=== PATIENT | female | born 1995 | race Caucasian/White ===

== ENCOUNTER 2016-02-13 00:58 | Inpatient (IN) | payer OTHER ==
[~2016-02-13] VITALS: Ht 154.9 cm; Wt 63.5 kg
[2016-02-13 01:56] LABS: Mean Corpuscular Hemoglobin 30.2 pg (27.0-35.0); Mean Corpuscular Volume 87.4 fL (81-100)
[2016-02-13] MEDS ORDERED: Lactated Ringer's 1,000 ML IV ONE (02:10)
[2016-02-13] MEDS ORDERED: Sodium Citrate-Citric Acid 15 mL Solution ONE (03:31)
[2016-02-13] MEDS ORDERED: CeFAZolin 2 Gm/50 mL D5W Duplex Bag IV ONE (03:32)
[2016-02-13] MEDS ORDERED: Morphine PF 1 mg/mL 10 mL Inj ONE (03:37)
[2016-02-13] MEDS ORDERED: Lactated Ringer's 1,000 ML IV PRN (03:53)
--- NOTE | 2016-02-13 03:53 | PCM.HPANE ---
Patient Data Surgeon Admitting Provider:Lei Paulson MD Attending Provider:Neda Louie MD Primary Care Physician:Lei Paulson MD Other Provider:Azalia Kidd Anesthesia Reason for Visit Active Labor ACTIVE LABOR Ht/WT & BMI Body Mass Index Allergies Coded Allergies: No Known Allergies (Unverified , 02/13/16) Medications Hypertension Medication: No Home Meds Incl Beta Sandeep: No History Hx of Heart Problems?: No Hx of Respiratory Problem?: No Hx Neurologic Problems?: No Hx of GI Problems?: Yes Gastrointestinal History: Positive for:: Heartburn Female Hx: Positive for:: Currently Hx Surgeries?: No Hx Substance Use: Yes Smoking Status: Current Every Day Smoker Light Tobacco Smoker Stop/Bang Treated for Sleep Apnea?: No Do You Have a CPAP Machine?: No JAJA Risk Assessment: Low Risk, <3 Yes Risk Assessment Category Category 1A: Patient has history of documented sleep apnea, and HAS NOT received any narcotic, sedative or anesthesia administration during this stay. Category 1B: Patient has history of documented sleep apnea, and HAS received any narcotic , sedative or anesthesia administration during this stay Category 2: Patient has SUSPECTED Obstructive Sleep Apnea, and HAS received any narcotic , sedative or anesthesia administration during this stay. Category 3: Patient has SUSPECTED Obstructive Sleep Apnea and HAS NOT received narcotic, sedative or anesthesia administration during this stay. Category 4: Outpatient in Procedural Areas with known sleep apnea or who screen positive for High Risk via the STOP/BANG questionnaire. Exam Exam General Appearance: Oriented X3 HEENT/AIRWAY: MP 2 Lungs: Normal Air Movement Heart: Regular Rate/Rhythm Meds/Labs/Diagnostics Admission Meds Current Medications Lactated Ringer's (Lr) 1,000 ml @ 0 mls/hr Q0M ONCE IV Last administered on 02:15; Start 02/13/16 at 02:10; Stop 02/13/16 at 02:11; Status DC Citric Acid/ Sodium Citrate (Bicitra) 30 ml STK-MED ONCE .ROUTE Last administered on 02/13/16 03:42; Start 02/13/16 at 03:31; Stop 02/13/16 at 03:32; Status DC Labs Test 02/13/16 01:35 White Blood Count 11.0th/mm3 (3.8-10.1) Red Blood Count 3.58mil/mm3 (3.90-5.20) Hemoglobin 10.8g/dL (12.0-15.6) Hematocrit 31.3% (35.0-46.0) Mean Corpuscular Volume 87.4fL (81-100) Mean Corpuscular Hemoglobin 30.2pg (27.0-35.0) Mean Corpuscular Hemoglobin Concent 34.5% (32.0-37.0) Red Cell Distribution Width 12.7% (12.3-15.4) Platelet Count 212bil/L (150-400) Plan Impression Patient chart reviewed, patient interviewed and anesthestic plan with risks, benefits, and alternatives discussed, and informed consent obtained. ASA Physical Status: ASA3 Severe Disease Anesthetic Plan: SAB Bene/Risks/Altern/Consents: Yes HP Complete Prior to Induction: Yes Bulmaro Navarro MD Feb 13, 2016 03:53
[2016-02-13] MEDS ORDERED: MetoCLOpramide 5 mg/mL 2 mL Inj IVPUSH PRN (03:55)
[2016-02-13] MEDS ORDERED: Phenylephrine/NS-PF 100 mCg/mL 5 mL Syringe IVPUSH PRN (03:55)
[2016-02-13] MEDS ORDERED: Dexamethasone 4 mg/mL Inj IVPUSH PRN (03:55)
[2016-02-13] MEDS ORDERED: EPHEDrine Sulfate 50 mg/mL Inj IVPUSH PRN (03:55)
[2016-02-13] MEDS ORDERED: Atropine 0.4 mg/mL Inj IV PRN (03:55)
[2016-02-13] MEDS ORDERED: HYDROmorphone 1 mg/mL Inj IVPUSH PRN (03:55)
[2016-02-13] MEDS ORDERED: Ondansetron 2 mg/mL 2 mL Inj IVPUSH PRN (03:55)
[2016-02-13] MEDS ORDERED: fentaNYL-PF 50 mCg/mL 2 mL Inj IVPUSH PRN (03:55)
[2016-02-13] MEDS ORDERED: Morphine PF 1 mg/mL 10 mL Inj EPIDURAL ONE (03:55)
--- NOTE | 2016-02-13 04:39 | PCM.ANEP2 ---
Post Anesthesia Evaluation ASA/CMS Post Anesthesia VS in Patient's Normal Range?: Yes Resp Stable; Airway Patent?: Yes CV Function & Hydration Stable: Yes Mental Status Recovered?: Yes Pain control Satisfactory?: Yes N/V Control Satisfactory?: Yes Bulmaro Navarro MD Feb 13, 2016 04:39
--- NOTE | 2016-02-13 04:39 | PCM.ANEP1 ---
Post Anesthesia Phase 1 PACU Phase 1 Assessment Anesthetic Administered: SAB Level of Alertness: Awake, talking DEE's with Equal Strength: No Pain: No Oxygen Delivery: Room Air Lungs: Normal Air Movement Bulmaro Navarro MD Feb 13, 2016 04:39
[2016-02-13] MEDS: Lactated Ringer's 1,000 ML IV SCH ×3 (04:44→20:44)
[2016-02-13] MEDS ORDERED: LANOlin HPA 7 Gm Ointment TOPICAL PRN (04:45)
[2016-02-13] MEDS ORDERED: Oxytocin 30 Units/500 mL LR 30 UNITS in IV Premix 1 EACH IV PRN (04:45)
[2016-02-13] MEDS ORDERED: Carboprost 250 mCg/mL Inj IM PRN (04:45)
[2016-02-13] MEDS ORDERED: Hemorrhage Kit, Post Partum XX ONE (04:45)
[2016-02-13] MEDS ORDERED: Oxytocin 10 Unit/mL Inj IM PRN (04:45)
[2016-02-13] MEDS ORDERED: Methylergonovine 0.2 mg/mL Inj IM PRN (04:45)
[2016-02-13] MEDS ORDERED: Sodium Chloride LOK Flush 10 mL Syringe IVFLUSH PRN (04:45)
--- NOTE | 2016-02-13 05:14 | HP ---
[address] [address] HISTORY AND PHYSICAL PATIENT: DUYEN BLAKELY : 1995 MR#: [id number] ADMIT: 02/13/2016 JOB ID: [id number] HISTORY OF PRESENT ILLNESS: This is a 20-year-old female. She is 1 para 0, at 38 weeks. She presented to the [facility] because of leaking of fluid and contractions. At the [facility], she was examined and confirmed rupture of membranes, and it was noted she was 1 cm dilated, and it was a breech presentation. She was at [facility] about 3-4 days ago for planned external version for breech presentation, and that procedure failed. The patient was scheduled for a at 39 weeks. At triage, there was category 1 heart tracing. She is tamie every 3-4 minutes, with mild to moderate pain. This patient has being following up at [facility]. She started to follow up late at about 39 weeks, and during her care, it was noticed that her blood type was AB positive. Her rubella is immune. Varicella immune. RPR negative. HBsAg negative. HIV negative. Chlamydia and gonorrhea negative. Her GBS was negative, and she passed her diabetes screening test. She had an ultrasound that confirmed breech presentation at her last OB visit. She has no known drug allergies. She has no other medical problems or surgeries before, and this is her first . She is a chronic smoker, and she is also taking marijuana. Declined other drug usage. She declined drinking alcohol. PHYSICAL EXAMINATION: At admission, her vitals stable. She is afebrile. Her blood pressure in normal range. Her pulse in normal range. Cardiac: RRR, no murmur. Pulmonary: Bilaterally clear. Abdomen is soft, , uterus contracts every 3-4 minutes, relaxed completely during contractions. Extremities: Nontender. Cervix was 1 cm dilated, with breech presentation and confirmed rupture of membranes. ASSESSMENT AND PLAN: This is a 20-year-old female, 1 para 0, at 38 weeks. Premature rupture of membranes, in early labor. 1. The patient just ate some solid food before she came to triage. At this time, planning to give the patient one dose of terbutaline and IV fluid to see whether the contractions can spacing out or stop. If the patient is not in active labor, will wait for a period of time before we do the . 2. If labor continues to progress, we will have to do an emergency section, and then one dose of Pitocin was given at triage, and the contractions did not subside, and it was noted the patient continued to have contractions. Then, she was examined and noticed she is fully dilated. An emergency section was decided. 3. The patient can get Ancef 2 g for prophylaxis. 4. Group-B Strep negative status. 5. She will get SCD for procedure.
--- NOTE | 2016-02-13 05:32 | OP ---
[address] [address] OPERATIVE REPORT PATIENT: DUYEN BLAKELY : 1995 MR#: [id number] ADMIT: 02/13/2016 JOB ID: [id number] DATE OF SURGERY: 02/13/2016 SURGEON: Neda Louie MD 1ST HOMEWORKER: Kobi Pavon DO PREOPERATIVE DIAGNOSIS(ES): A 20-year-old female, 1, para 0, at 38 weeks breech presentation in active labor. 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 INDICATION OF THE PROCEDURE: A 20-year-old female, 1, para 0, at 38 weeks breech presentation in active labor. First assistent is necessary for this procedure for exposure and completing the procedure. Patient presented to [facility] for active labor, rupture of membranes and breech presentation at 38 weeks . Although ate just before she arrived at [facility] she is in active labor and could not be stopped and could not be delayed by terbutaline. Emergency section was decided. Discussed with patient the procedure, about the indication, benefits, and risks of primary section. Patient understood there is risk of infection, bleeding, injury to the organs around the uterus including the bladder, ureters, major verves and vessels, and bowels. Verbal consent was obtained before the procedure and written consent was obtained after the procedure. DETAILS OF PROCEDURE: Patient was transferred to operating room after spinal anesthesia was noted to be adequate. She was placed in dorsal supine position with a leftward tilt. She was prepared and draped in normal sterile fashion. A Pfannenstiel incision was placed with scalpel and this incision was carried through to the underlying fascia with Bovie. A transverse incision was placed on fascia with Bovie and extended bilaterally by Pulliam scissors. The superior aspect of the incision was grasped by straight Bia, tented up. The underlying rectus muscle was dissected off. The inferior aspect of the incision was grasped by a straight Bia, tented up. The underlying rectus muscle was dissected off. The rectus muscle was in the midline. The underlying peritoneum identified and entered both sharply and bluntly. Lower blade inserted to expose the lower segment of the uterus and the vesicouterine peritoneum identified and entered sharply with Pulliam scissors. Bladder flap created. Lower blade inserted. A transverse incision was placed on the lower segment uterus and extended by both bandage scissors and blunt separation. At this time, the membrane ruptured and all the instrument cleared from the field and this was noted to be complete breech presentation. The infant was delivered as a breech delivery mechanism without difficulty without complication. The delayed cord clamp was performed after 1 minute of delivery and then regular cord blood collected. So then the infant was handed to the waiting rubber engraver. Regular cord blood collected. Placenta delivered spontaneously completely and noticed to have 3-vessel cord. After the placenta delivered, the uterus was exteriorized. All debris and clots from field and at the same time Pitocin started by Anesthesia. 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 Then, the bilateral ovaries and tubes looked normal. The incision was closed by 0-Vicryl continuously with locked fashion. The 2nd layer of incision was placed for imbrication was placed with same suture. The hemostasis confirmed after the close of the incision. The pelvic cavity was irrigated by warm normal saline and the uterus returned back to the abdominal cavity. The incision was checked for a second time and hemostasis confirmed again then the fascia was reapproximated with 0-Vicryl continuously. The skin was closed by 4-0 Monocryl on a Arturo needle. The EBL during the procedure was 500 cc. IV fluid given was 1.2 L. Urine output was 200 cc with clear fluid. All instrument, needles, laps, and gauzes were counted and correct x2. This was a male infant. scores 9 and the weight was not available at dictation. [facility]
[2016-02-13] MEDS: Acetaminophen IV 1,000 MG in IV Premix 1 EACH IV PRN ×2 (06:17→11:46)
[2016-02-13] MEDS ORDERED: Oxytocin 10 Unit/mL Inj ONE (07:23)
[2016-02-13] MEDS ORDERED: Phenylephrine/NS 100 mCg/mL 10 mL Syringe IVPUSH ONE (07:23)
[2016-02-13] MEDS ORDERED: Dexamethasone 4 mg/mL Inj ONE (07:23)
[2016-02-13] MEDS ORDERED: Ondansetron 2 mg/mL 2 mL Inj ONE (07:23)
[2016-02-13] MEDS ORDERED: Propofol 10,000 mCg/mL 20 mL Inj ONE (07:23)
[2016-02-13] MEDS ORDERED: MetoCLOpramide 5 mg/mL 2 mL Inj ONE (07:23)
[2016-02-13] MEDS: HYDROcodone-APAP 5-325 mg Tablet PO PRN (19:26)
[2016-02-14] MEDS: HYDROcodone-APAP 5-325 mg Tablet PO PRN ×4 (00:12→16:03)
[2016-02-14 06:58] LABS: Mean Corpuscular Hemoglobin 29.9 pg (27.0-35.0); Mean Corpuscular Volume 90.5 fL (81-100)
--- NOTE | 2016-02-14 08:35 | PCM.PNOBPP ---
Subjective Date of Service Feb 14, 2016 Post : Primary Ceserean Delivery Subjective 20 yo female via Cesarian section due to breech presentation. Patient with 5/10 pain of muscles and incision site. She is requesting ability to go out and smoke a cigarette. Lochia: Normal Pain Management: PO pain meds Gastrointestinal: Good Appetite, Passing Flatus Postop Activity: Ambulate without Assist Group B Strep Results: Negative Blood Type: AB RH Type: Positive Labs Laboratory Tests 02/14/16 05:56: Exam Vital Signs Vital Signs: VS reviewed, stable Exam Abdomen: Abdomen soft, Abdomen appropriately tender : Voiding without difficulty Extremities: No edema General: Alert, No Acute Distress Surgical Wound : Incision General Appearence: Steri Strips, Wound under dressing Dressing & Drainage Status: Serosanguineous Drainage, No Odor OB Post Assessment/Plan Assessment 20 yo female cesarian section due to breech presentation. Problems: (1) Anemia Qualifiers: Anemia type: other cause Other causes of anemia: acute posthemorrhagic Qualified Code: D62 - Acute posthemorrhagic anemia Plan: Hemoglobin 8.5. Ferrous sulfate 3 times daily. Status: Acute ICD Code: D64.9 (2) Delivery by emergency section Plan: Patient meaning post surgical goals. Continue care. Status: Acute ICD Code: O82 (3) Tobacco abuse Plan: Nicotine patch, smoking cessation counseling. Status: Acute ICD Code: Z72.0 (4) Marijuana abuse Plan: Patient bottle feeding baby. Status: Acute ICD Code: F12.10 Pain Evaluation: Adequate Pain Control Post plan: Continue routine post care Attending Statement She is doing well on POD#1, pain is well controlled. She is ambulating and voiding well on her own since catheter was removed this AM. Incision is clean dry and intact. Pain is well controlled. Continue routine post operative care STEVE SU DO Feb 14, 2016 07:06 Fiorella Dunn MD Feb 15, 2016 11:38
--- NOTE | 2016-02-14 13:53 | NUR ---
Social Work-Family Assessment: Date/time: 02/14/16 1330 MOB and FOB and Baby: Ilana Salinas, Jeremy Villegas, and Toby Salinas Reason for SW consult: positive marijuana tox screen on MOB Current living situation:MOB and FOB are currently living together. MOB reports she, baby, and FOB will be staying with family friend at discharge due to larger home and friend to be able to assist with baby. Previous children/in whos care/CPS involvement: none Substance abuse hx:MOB report she uses marijuana regularly, but denies any other ETOH or substance. SW did explain to MOB and FOB that CPS information call will be made for positive marijuana tox screen. Mental Health hx and current issues: none noted. SW discussed post depression with MOB and FOB and provided with resources. Source of income/state assistance:MOB and FOB are currently both not working. They do receive TANF, WIC, and food stamps. DV/abuse hx: no DV concerns noted. MOB reports to feel safe where they are living. Supports:MOB and FOB report good friends and family support to be able to assist with baby and reach out to. Special healthcare needs/disabilities for baby: none noted. Involvement/Referral to [facility]/community programs: MOB already enrolled in [facility] and is aware or [facility]. SW provided her with resource packet with information in it. MOB and FOB report already having all supplies needed for baby. MOB already has aquatics manager picked out just needs to make an appointment. \ Other: SW spoke with RN who reports no concerns. RN reports MOB has been appropriate with baby and has been boding well. Assessment:SW did complete information call to CPS workers compensation paralegal Marcie Moffett for positive marijuana tox screen, cord stat pending. SW did inform MOB and FOB that this call would be made. No other concerns noted. MOB and FOB well connected with community resources and have good support system at home. Disposition/plan: Baby to discharge home with MOB and FOB when medically stable. CPS informational report has been made due to positive marijuana use. Resource packet has been provided to MOB and FOB. No other concerns noted at this time. RN has been updated. SW will continue if needs arise. JL Nicole Addendum: 02/14/16 at 1412 by DIANA BANKS Amended: Links added.
[2016-02-15] MEDS: oxyCODONE-Acetamin 5-325 mg Tablet PO PRN ×2 (00:04→09:02)
[2016-02-15] MEDS: HYDROcodone-APAP 5-325 mg Tablet PO PRN (04:05)
--- NOTE | 2016-02-15 06:39 | PCM.PNOBPP ---
Subjective Date of Service Feb 15, 2016 Post : Primary Ceserean Delivery Subjective 20 yo female via due to breech presentation and non reassuring heart tones. Patient with mild lower abdominal pain at the incision site, she describes as sore. Pt states no other complaints, she is having bowel movements, denies fever, chills N/V, TURNER, CP or SOB. Lochia: Normal Pain Management: PO pain meds Gastrointestinal: Good Appetite, Passing Flatus Postop Activity: Ambulate without Assist Group B Strep Results: Negative Blood Type: AB RH Type: Positive Labs Laboratory Tests 02/14/16 05:56: White Blood Count 11.9, Red Blood Count 2.84, Hemoglobin 8.5, Hematocrit 25.7, Mean Corpuscular Volume 90.5, Mean Corpuscular Hemoglobin 29.9, Mean Corpuscular Hemoglobin Concent 33.1, Red Cell Distribution Width 13.1, Platelet Count 165 Exam Exam Abdomen: Abdomen soft, Abdomen appropriately tender : Voiding without difficulty Extremities: Normal pulses Lungs: Clear to Auscultation Heart: Regular Rate/Rhythm General: Alert, Oriented X3, Cooperative, No Acute Distress OB Post Assessment/Plan Problems: (1) Anemia Qualifiers: Anemia type: other cause Other causes of anemia: acute posthemorrhagic Qualified Code: D62 - Acute posthemorrhagic anemia Plan: Hemoglobin 8.5 (02/14/2016). Ferrous sulfate 3 times daily. Status: Acute ICD Code: D64.9 (2) Delivery by emergency section Plan: Patient meaning post surgical goals. Continue care. Status: Acute ICD Code: O82 (3) Tobacco abuse Plan: Nicotine patch, smoking cessation counseling. Status: Acute ICD Code: Z72.0 (4) Marijuana abuse Plan: Patient bottle feeding baby. Status: Acute ICD Code: F12.10 Pain Evaluation: Adequate Pain Control Post plan: Continue routine post care Attending Statement The patient was seen and examined together with Dr. Melendez on 02/15/2016 and I have added additional information to the note above. LUNA MELENDEZ DO Feb 15, 2016 06:20 Ceci Gonzales MD Feb 16, 2016 08:16
--- NOTE | 2016-02-15 07:14 | PCM.DC.OB ---
Obstetrical Discharge Summary Date of Service Feb 15, 2016 Date of hospital admission Feb 13, 2016 at 01:10 Date of Discharge: Feb 15, 2016 Providers Admitting Physician: Lei Paulson MD Primary Care Physician: Lei Paulson MD Attending Physician: Neda Louie MD Problems: (1) Anemia Qualifiers: Anemia type: other cause Other causes of anemia: acute posthemorrhagic Qualified Code: D62 - Acute posthemorrhagic anemia Status: Acute ICD Code: D64.9 (2) Delivery by emergency section Status: Acute ICD Code: O82 (3) Tobacco abuse Status: Acute ICD Code: Z72.0 (4) Marijuana abuse Status: Acute ICD Code: F12.10 Date of Procedure: Feb 13, 2016 Pathology Emergency Brief History and Physical: H&P per Dr. Louie 02/13/2016 "This is a 20-year-old female. She is 1 para 0, at 38 weeks. She presented to the [facility] because of leaking of fluid and contractions. At the [facility], she was examined and confirmed rupture of membranes, and it was noted she was 1 cm dilated, and it was a breech presentation. She was at [facility] about 3-4 days ago for planned external version for breech presentation, and that procedure failed. The patient was scheduled for a at 39 weeks. At triage, there was category 1 heart tracing. She is tamie every 3-4 minutes, with mild to moderate pain. This patient has being following up at [facility]. She started to follow up late at about 39 weeks, and during her care, it was noticed that her blood type was AB positive. Her rubella is immune. Varicella immune. RPR negative. HBsAg negative. HIV negative. Chlamydia and gonorrhea negative. Her GBS was negative, and she passed her diabetes screening test. She had an ultrasound that confirmed breech presentation at her last OB visit. She has no known drug allergies. She has no other medical problems or surgeries before, and this is her first . She is a chronic smoker, and she is also taking marijuana. Declined other drug usage. She declined drinking alcohol." Hospital Course: Pt admitted for secondary to breech presentation. Pt tolerated Procedure well and had no postoperative complications. Docusate Sodium (Colace) 100 Mg Capsule 100 MG PO BID Prescribed by: LUNA MESA DO Ferrous Sulfate (Feosol) 325 Mg Tablet 325 MG PO TIDWM Prescribed by: LUNA MESA DO Ibuprofen (Ibuprofen) 600 Mg Tablet 600 MG PO Q6H PRN PRN For Pain Prescribed by: LUNA MESA DO oxyCODONE (oxyCODONE) 5 Mg Tablet 5-10 MG PO Q4H PRN PRN For Pain Prescribed by: LUNA MESA DO Discharge Medications: Percocet, Ibuprofen, Iron, Vit C, Colace Disposition Discharge to home in stable condition Follow-up plan Follow up in clinic in 2 weeks and 6 weeks. Discharge Diet: No restrictions Discharge Activity-General: Try not to overdue, Balance rest and activity, Activity as pain allows, Activity as energy allows, No lifting >15 pounds for 2 weeks Patient instructions Follow up in clininc in 2 weeks and then again in 6 weeks. Call the clinic if you experience any bleeding, fevers, chest pain, become lightheaded/dizzy, develop nausea/vomiting, or if your wound appears to be infected (becomes red, swollen, tender to palpation or if you have any fluid - blood or otherwise - begin to seep from your wound site please call the clinic or seek medical attention at the emergency department. Additional information Please take your percocet as directed, also do not also take tylenol with this medication. LUNA MESA DO Feb 15, 2016 06:49
--- NOTE | 2016-02-15 07:15 | PCM.DIMED ---
Discharge Instructions Date of Service Feb 15, 2016 Dates of Hospitalization Feb 13, 2016 at 01:10 Discharge Diagnosis Discharge Diagnosis Childbirth following emergency Diet No restrictions Activity Limited until seen by PCP Call your provider Fever or Chills, Shortness of breath, Bleeding, Chest pain, Vomitting, Excessive diarrhea, Weakness (unilateral) Patient Instructions Follow up in clininc in 2 weeks and then again in 6 weeks. Call the clinic if you experience any bleeding, fevers, chest pain, become lightheaded/dizzy, develop nausea/vomiting, or if your wound appears to be infected (becomes red, swollen, tender to palpation or if you have any fluid - blood or otherwise - begin to seep from your wound site please call the clinic or seek medical attention at the emergency department. Follow-up plan Follow up in clinic in 2 weeks and 6 weeks. Follow-up with PCP in: 2 weeks LUNA MESA DO Feb 15, 2016 07:15
[2016-02-15] MEDS ORDERED: DOCU-41 PO (07:18)
[2016-02-15] MEDS ORDERED: OXYC5TAB72 PO (07:18)
[2016-02-15] MEDS ORDERED: IBUP-1827 PO (07:18)
[2016-02-15] MEDS ORDERED: FERR-74 PO (07:18)
[2016-02-15 08:06] VITALS: BP 121/65; PULSE 85; RESP 18
== END 2016-02-15 09:21 | disposition home or self-care (01) | DRG 540 ==
LOC: FBCO 00:58 → FBC 01:10
PROVIDERS: ADMIT Legal Medicine; ATTEND Obstetrics & Gynecology
PROC: 10D00Z1 Extraction of Products of Conception, Low, Open Approach (ICD-10-PCS; principal; 2016-02-13 03:33)
DX: O64.1XX0 Obstructed labor due to breech presentation, not applicable or unspecified (principal); O99.323 Drug use complicating pregnancy, third trimester; F12.10 Cannabis abuse, uncomplicated; O99.333 Smoking (tobacco) complicating pregnancy, third trimester; F17.210 Nicotine dependence, cigarettes, uncomplicated; Z3A.38 38 weeks gestation of pregnancy; Z37.0 Single live birth